=== PATIENT | female | born 1945 | race Caucasian/White ===

== ENCOUNTER 2020-12-29 13:16 | Outpatient (REF) | payer OTHER, SELFPAY ==
[2020-12-29 16:33] LABS: MANUAL DIFF FLAG NO
[2020-12-29 16:39] LABS: Appearance Urine HAZY; Color Urine YELLOW; Glucose Urine UA NEG (NEG); Leukocyte Esterase Urine TRACE (NEG); Nitrite Urine NEG (NEG); PH 6.5 (5.0-8.0); Urine Blood NEG (NEG); Urine Ketones NEG (NEG); Urine Protein NEG (NEG-TRACE)
[2020-12-29 16:45] LABS: Basophils Percent Auto 0.4 % (0-2); Eosinophils Absolute Auto 0.4 X10*3/uL (0.0-0.4); Eosinophils Percent Auto 4.4 % (0-4); Hematocrit 42.2 % (37-47); Hemoglobin 14.9 g/dl (12.0-16.0); Imm Gran Abs Auto 0.03 X10*3/uL (0.00-0.03); Imm Gran Pct Auto 0.4 % (0.0-0.4); Lymphocytes Percent Auto 23.4 % (20-40); Mean Corpuscular HGB Conc 35.3 g/dl (31.0-35.0); Mean Corpuscular Hemoglobin 32.2 pg (27.0-33.0); Mean Corpuscular Volume 91.1 fL (80-98); Mean Platelet Volume 11.1 fL (9.4-12.3); Monocytes Absolute Auto 0.7 X10*3/uL (0.1-1.2); Monocytes Percent Auto 8.6 % (2-11); Neutrophils Absolute Auto 5.2 X10*3/uL (2.0-8.3); Neutrophils Percent Auto 62.8 % (45-73); Platelet Count 259 X10*3/uL (160-400); Red Blood Count 4.63 X10*6/uL (4.20-5.50); Red Cell Distribution Width 12.8 % (11.0-16.0); White Blood Count 8.3 X10*3/uL (4.8-10.8)
[2020-12-29 16:53] LABS: Bacteria Urine 1+ /LPF; Calcium Oxalate Crystals Urine 1+ /LPF; RBC Urine 0 /HPF (0); Squamous Epithelial Cell Urine 1+ /LPF; WBC Urine 0-2 /HPF (0-4)
[2020-12-29 17:29] LABS: Thyroid Stimulating Hormone 1.65 uIU/mL (0.32-4.0); Vitamin D 25-OH Total 31.2 ng/mL (>30)
[2020-12-29 17:38] LABS: Alanine Aminotransferase 32 U/L (0-31); Albumin Level 4.3 g/dL (3.5-5.0); Alkaline Phosphatase 61 U/L (39-117); Anion Gap 14 (12-20); Aspartate Amino Transferase 26 U/L (5-31); Bilirubin Total 1.7 mg/dL (0.0-1.0); Blood Urea Nitrogen 19 mg/dL (9-16); Calcium 10.9 mg/dL (8.4-10.2); Carbon Dioxide 24 mmol/L (22-29); Chloride 104 mmol/L (96-108); Estimated Glomerular Filt Rate > 60; Glucose Random 88 mg/dL (60-115); Sodium 139 mmol/L (135-145); Total Protein 7.1 g/dL (6.5-8.0)
== END 2020-12-29 13:17 | disposition home or self-care (01) ==
LOC: HO.HMGCLDS 13:16
PROVIDERS: PCP Internal Medicine; Visit Provider Internal Medicine
DX: I10 Essential (primary) hypertension (principal); F41.9 Anxiety disorder, unspecified; E55.9 Vitamin D deficiency, unspecified
CPT/HCPCS: 36415; 80053; 81001; 82306; 84443; 85025

== ENCOUNTER 2021-02-09 10:29 | Outpatient (REF) | payer OTHER, SELFPAY ==
[2021-02-09 12:16] LABS: Alanine Aminotransferase 23 U/L (0-31); Albumin Level 4.4 g/dL (3.5-5.0); Alkaline Phosphatase 66 U/L (39-117); Anion Gap 16 (12-20); Aspartate Amino Transferase 22 U/L (5-31); Bilirubin Total 1.5 mg/dL (0.0-1.0); Blood Urea Nitrogen 35 mg/dL (9-16); Calcium 11.2 mg/dL (8.4-10.2); Carbon Dioxide 26 mmol/L (22-29); Chloride 100 mmol/L (96-108); Estimated Glomerular Filt Rate 30; Glucose Random 112 mg/dL (60-115); Sodium 138 mmol/L (135-145); Total Protein 7.5 g/dL (6.5-8.0)
== END 2021-02-09 10:30 | disposition home or self-care (01) ==
LOC: HO.HMGCLDS 10:29
PROVIDERS: PCP Internal Medicine; Visit Provider Internal Medicine
DX: I10 Essential (primary) hypertension (principal)
CPT/HCPCS: 36415; 80053

== ENCOUNTER 2021-03-09 15:09 | Outpatient (REF) | payer OTHER, SELFPAY ==
[2021-03-09 16:52] LABS: MANUAL DIFF FLAG NO
[2021-03-09 17:12] LABS: Basophils Percent Auto 0.4 % (0-2); Eosinophils Absolute Auto 0.3 X10*3/uL (0.0-0.4); Eosinophils Percent Auto 2.7 % (0-4); Hemoglobin 14.7 g/dl (12.0-16.0); Imm Gran Abs Auto 0.03 X10*3/uL (0.00-0.03); Imm Gran Pct Auto 0.3 % (0.0-0.4); Lymphocytes Absolute Auto 1.7 X10*3/uL (1.2-4.9); Lymphocytes Percent Auto 15.9 % (20-40); Mean Corpuscular Hemoglobin 32.2 pg (27.0-33.0); Mean Corpuscular Volume 92.1 fL (80.0-98.0); Mean Platelet Volume 10.7 fL (9.4-12.3); Monocytes Absolute Auto 0.8 X10*3/uL (0.1-1.2); Neutrophils Absolute Auto 7.6 x10*3/uL (2.0-8.3); Neutrophils Percent Auto 72.7 % (45-73); Platelet Count 278 X10*3/uL (160-400); Red Blood Count 4.56 X10*6/uL (4.20-5.50); Red Cell Distribution Width 13.2 % (11.0-16.0); White Blood Count 10.4 X10*3/uL (4.8-10.8)
[2021-03-09 17:16] LABS: Alanine Aminotransferase 27 U/L (0-31); Albumin Level 4.4 g/dL (3.5-5.0); Alkaline Phosphatase 65 U/L (39-117); Anion Gap 16 (12-20); Aspartate Amino Transferase 22 U/L (5-31); Bilirubin Total 1.3 mg/dL (0.0-1.0); Blood Urea Nitrogen 19 mg/dL (9-16); Calcium 10.1 mg/dL (8.4-10.2); Carbon Dioxide 25 mmol/L (22-29); Chloride 105 mmol/L (96-108); Estimated Glomerular Filt Rate 54; Glucose Random 91 mg/dL (60-115); Potassium 4.1 mmol/L (3.3-5.1); Sodium 142 mmol/L (135-145); Total Protein 7.5 g/dL (6.5-8.0)
[2021-03-12 04:46] LABS: Calcium (PTHI) 10.4 mg/dL (8.6-10.4); PTHI 17 pg/mL (14-64)
== END 2021-03-09 15:10 | disposition home or self-care (01) ==
LOC: HO.HMGCLDS 15:09
PROVIDERS: Visit Provider Internal Medicine
DX: I10 Essential (primary) hypertension (principal)
CPT/HCPCS: 36415; 80053; 83970; 85025

== ENCOUNTER 2022-08-16 11:27 | Outpatient (REF) | payer OTHER, SELFPAY ==
[2022-08-16 14:01] LABS: MANUAL DIFF FLAG NO
[2022-08-16 14:25] LABS: Basophils Absolute Auto 0.1 X10*3/uL (0.0-0.2); Basophils Percent Auto 0.6 % (0-2); Eosinophils Absolute Auto 0.6 X10*3/uL (0.0-0.4); Hematocrit 44.5 % (37.0-47.0); Hemoglobin 14.8 g/dl (12.0-16.0); Imm Gran Abs Auto 0.04 X10*3/uL (0.00-0.03); Imm Gran Pct Auto 0.5 % (0.0-0.4); Lymphocytes Absolute Auto 1.8 X10*3/uL (1.2-4.9); Lymphocytes Percent Auto 22.8 % (20-40); Mean Corpuscular HGB Conc 33.3 g/dl (31.0-35.0); Mean Corpuscular Hemoglobin 30.5 pg (27.0-33.0); Mean Corpuscular Volume 91.6 fL (80.0-98.0); Mean Platelet Volume 10.5 fL (9.4-12.3); Monocytes Absolute Auto 0.6 X10*3/uL (0.1-1.2); Neutrophils Absolute Auto 4.8 x10*3/uL (2.0-8.3); Neutrophils Percent Auto 60.1 % (45-73); Platelet Count 274 X10*3/uL (160-400); Red Blood Count 4.86 X10*6/uL (4.20-5.50); Red Cell Distribution Width 13.6 % (11.0-16.0)
[2022-08-16 18:57] LABS: Alanine Aminotransferase 22 U/L (0-31); Albumin Level 4.1 g/dL (3.5-5.0); Alkaline Phosphatase 69 U/L (39-117); Anion Gap 14 (12-20); Aspartate Amino Transferase 21 U/L (5-31); Bilirubin Total 1.8 mg/dL (0.0-1.0); Blood Urea Nitrogen 17 mg/dL (9-16); Calcium 10.5 mg/dL (8.4-10.2); Carbon Dioxide 24 mmol/L (22-29); Chloride 109 mmol/L (96-108); Cholesterol 242 mg/dL; Estimated Glomerular Filt Rate > 60; Glucose Fasting 93 mg/dL (60-99); HDL Cholesterol 60 mg/dL; LDL Cholesterol Calculated 151 mg/dl; Potassium 4.9 mmol/L (3.3-5.1); Sodium 142 mmol/L (135-145); Total Protein 6.7 g/dL (6.5-8.0); Triglycerides 156 mg/dL
[2022-08-16 19:12] LABS: Thyroid Stimulating Hormone 2.51 uIU/mL (0.32-4.0); Vitamin D 25-OH Total 29.8 ng/mL (>30)
== END 2022-08-16 11:28 | disposition home or self-care (01) ==
LOC: HO.HMGCLDS 11:27
PROVIDERS: PCP Internal Medicine; Visit Provider Internal Medicine
DX: R26.9 Unspecified abnormalities of gait and mobility (principal); I10 Essential (primary) hypertension; E78.00 Pure hypercholesterolemia, unspecified; E55.9 Vitamin D deficiency, unspecified
CPT/HCPCS: 36415; 80053; 80061; 82306; 84443; 85025

== ENCOUNTER → 2022-10-03 14:58 | Outpatient (BNVA) | payer OTHER, SELFPAY | PROVIDERS: PCP Internal Medicine; Visit Provider Orthopaedic Surgery | DX: M65.332 Trigger finger, left middle finger (principal); M25.642 Stiffness of left hand, not elsewhere classified | CPT/HCPCS: 20550; J1100 ==

== ENCOUNTER 2023-02-15 14:35 | Outpatient (REF) | payer OTHER, SELFPAY ==
[2023-02-15 16:22] LABS: Alanine Aminotransferase 20 U/L (0-31); Alkaline Phosphatase 60 U/L (39-117); Anion Gap 12 (12-20); Aspartate Amino Transferase 18 U/L (5-31); Bilirubin Total 1.2 mg/dL (0.0-1.0); Blood Urea Nitrogen 26 mg/dL (9-16); Calcium 10.9 mg/dL (8.4-10.2); Carbon Dioxide 24 mmol/L (22-29); Chloride 110 mmol/L (96-108); Cholesterol 205 mg/dL (<200); Estimated Glomerular Filt Rate > 60; Glucose Fasting 99 mg/dL (60-99); HDL Cholesterol 54 mg/dL (>40); LDL Cholesterol Calculated 125 mg/dL (<100); Potassium 3.7 mmol/L (3.3-5.1); Sodium 142 mmol/L (135-145); Total Protein 6.8 g/dL (6.5-8.0); Triglycerides 133 mg/dL (<150)
[2023-02-16 17:49] LABS: PTHI <6 pg/mL (16-77)
== END 2023-02-15 14:36 | disposition home or self-care (01) ==
LOC: HO.HMGCLDS 14:35
PROVIDERS: PCP Internal Medicine; Visit Provider Internal Medicine
DX: I10 Essential (primary) hypertension (principal); E78.00 Pure hypercholesterolemia, unspecified; E55.9 Vitamin D deficiency, unspecified; M65.332 Trigger finger, left middle finger
CPT/HCPCS: 36415; 80053; 80061; 83970

== ENCOUNTER 2023-02-27 11:11 | Outpatient (REF) | payer OTHER, SELFPAY ==
--- NOTE | ~2023-02-27 | XR_ITS ---
EXAMINATION: XR CHEST CLINICAL INFORMATION: Essential hypertension COMPARISON: 03/20/2015 and 10/16/2011 TECHNIQUE: 2 views of the chest were obtained. FINDINGS: There are low volumes, but the lungs are clear. The right hilum is newly enlarged. The aorta is uncoiled. The cardiac silhouette is normal in size. XR/XR chest 2V IMPRESSION: 1. Enlarged right hilum could reflect an enlarged right pulmonary artery, suggesting pulmonary artery hypertension. (Alternatively, this could reflect hilar enlargement). Contrast-enhanced thoracic CT is suggested as clinically warranted.
[2023-02-27 13:37] LABS: MANUAL DIFF FLAG NO
[2023-02-27 14:09] LABS: Basophils Percent Auto 0.3 % (0-2); Eosinophils Absolute Auto 0.4 X10*3/uL (0.0-0.4); Hemoglobin 15.2 g/dl (12.0-16.0); Imm Gran Abs Auto 0.04 X10*3/uL (0.00-0.03); Imm Gran Pct Auto 0.4 % (0.0-0.4); Lymphocytes Absolute Auto 1.4 X10*3/uL (1.2-4.9); Lymphocytes Percent Auto 14.1 % (20-40); Mean Corpuscular HGB Conc 34.5 g/dl (31.0-35.0); Mean Corpuscular Hemoglobin 30.6 pg (27.0-33.0); Mean Corpuscular Volume 88.5 fL (80.0-98.0); Mean Platelet Volume 10.7 fL (9.4-12.3); Monocytes Absolute Auto 0.7 X10*3/uL (0.1-1.2); Neutrophils Absolute Auto 7.6 x10*3/uL (2.0-8.3); Neutrophils Percent Auto 74.2 % (45-73); Platelet Count 346 X10*3/uL (160-400); Red Blood Count 4.97 X10*6/uL (4.20-5.50); Red Cell Distribution Width 12.7 % (11.0-16.0); White Blood Count 10.2 X10*3/uL (4.8-10.8)
[2023-02-27 14:26] LABS: Alanine Aminotransferase 18 U/L (0-31); Albumin Level 4.2 g/dL (3.5-5.0); Alkaline Phosphatase 67 U/L (39-117); Anion Gap 14 (12-20); Aspartate Amino Transferase 18 U/L (5-31); Bilirubin Total 1.1 mg/dL (0.0-1.0); Blood Urea Nitrogen 15 mg/dL (9-16); Calcium 11.3 mg/dL (8.4-10.2); Carbon Dioxide 22 mmol/L (22-29); Chloride 108 mmol/L (96-108); Estimated Glomerular Filt Rate > 60; Glucose Random 129 mg/dL (60-115); Potassium 3.2 mmol/L (3.3-5.1); Sodium 141 mmol/L (135-145); Total Protein 7.3 g/dL (6.5-8.0)
[2023-02-27 14:28] LABS: Thyroid Stimulating Hormone 2.13 uIU/mL (0.32-4.0); Vitamin D 25-OH Total 32.6 ng/mL (>30)
[2023-02-28 16:28] LABS: PTHI <6 pg/mL (16-77)
[2023-03-01 16:43] LABS: Calcium, Ionized 5.9 mg/dL (4.7-5.5)
[2023-03-01 21:52] LABS: Prot Elec - Alpha1 0.3 g/dL (0.2-0.3); Prot Elec - Alpha2 0.7 g/dL (0.5-0.9); Prot Elec - Beta 1 0.5 g/dL (0.4-0.6); Prot Elec - Beta 2 0.3 g/dL (0.2-0.5); Prot Elec - Gamma 0.9 g/dL (0.8-1.7); Prot Elec - Total Protein 6.7 g/dL (6.1-8.1)
[2023-03-03 10:30] LABS: IgA 208 mg/dL (70-320); IgG 1022 mg/dL (600-1540); IgM 81 mg/dL (50-300)
[2023-03-04 15:23] LABS: Vitamin D 25-OH, D2 <4 ng/mL; Vitamin D 25-OH, D3 23 ng/mL; Vitamin D 25-OH, Total 23 ng/mL (30-100)
[2023-03-05 09:59] LABS: VITAMIN D (1,25 OH) D3 <8 pg/mL; Vit D (1,25-Dihydroxy) Total <8 pg/mL (18-72); Vitamin D (1,25 OH) D2 <8 pg/mL
== END 2023-02-27 11:12 | disposition home or self-care (01) ==
LOC: HO.HMGCLDS 11:11
PROVIDERS: PCP Internal Medicine; Visit Provider Internal Medicine
DX: E83.52 Hypercalcemia (principal); E55.9 Vitamin D deficiency, unspecified; I10 Essential (primary) hypertension
CPT/HCPCS: 36415; 71046; 80053; 82306; 82330; 82652; 82784; 83970; 84165; 84443; 85025; 86334

== ENCOUNTER 2023-04-26 11:03 | Outpatient (REF) | payer OTHER, SELFPAY ==
[2023-04-26 13:06] LABS: Alanine Aminotransferase 23 U/L (0-31); Albumin Level 4.2 g/dL (3.5-5.0); Alkaline Phosphatase 73 U/L (39-117); Anion Gap 14 (12-20); Aspartate Amino Transferase 20 U/L (5-31); Bilirubin Total 0.8 mg/dL (0.0-1.0); Blood Urea Nitrogen 19 mg/dL (9-16); Calcium 11.6 mg/dL (8.4-10.2); Carbon Dioxide 25 mmol/L (22-29); Chloride 106 mmol/L (96-108); Estimated Glomerular Filt Rate > 60; Glucose Random 106 mg/dL (60-115); Potassium 4.6 mmol/L (3.3-5.1); Sodium 140 mmol/L (135-145); Total Protein 7.2 g/dL (6.5-8.0)
[2023-04-26 13:12] LABS: Parathyroid Hormone Intact 8.1 pg/mL (8.7-77.1)
[2023-05-01 13:34] LABS: Angiotensin Converting Enzyme 34 U/L (9-67)
[2023-05-09 17:09] LABS: Parathyroid Hormone Related Pr 11 pg/mL (11-20)
== END 2023-04-26 11:04 | disposition home or self-care (01) ==
LOC: HO.HMGCLDS 11:03
PROVIDERS: PCP Internal Medicine; Visit Provider Internal Medicine
DX: E83.52 Hypercalcemia (principal)
CPT/HCPCS: 36415; 80053; 82164; 83519; 83970

== ENCOUNTER 2023-06-22 11:49 | Outpatient (REF) | payer OTHER, SELFPAY ==
--- NOTE | ~2023-06-22 | XR_ITS ---
EXAMINATION: XR CHEST CLINICAL INFORMATION: Essential hypertension COMPARISON: Available TECHNIQUE: 2 views of the chest were obtained. FINDINGS: Heart and mediastinum within normal limits. Aorta is tortuous. Prominent right hilum is stable, likely vascular. No vascular congestion, consolidations or effusions. Increased AP diameter to the chest with hyperinflation mild biapical pleural thickening. Minimal kyphosis. Demineralization and mild degenerative changes. XR/XR chest 2V IMPRESSION: No acute cardiopulmonary disease.
[2023-06-22 14:41] LABS: Alanine Aminotransferase 22 U/L (0-31); Alkaline Phosphatase 77 U/L (39-117); Anion Gap 15 (12-20); Aspartate Amino Transferase 23 U/L (5-31); Bilirubin Total 0.8 mg/dL (0.0-1.0); Blood Urea Nitrogen 18 mg/dL (9-16); Calcium 10.4 mg/dL (8.4-10.2); Carbon Dioxide 22 mmol/L (22-29); Chloride 106 mmol/L (96-108); Estimated Glomerular Filt Rate 52; Glucose Random 107 mg/dL (60-115); Potassium 4.3 mmol/L (3.3-5.1); Sodium 139 mmol/L (135-145); Total Protein 7.1 g/dL (6.5-8.0)
== END 2023-06-22 11:50 | disposition home or self-care (01) ==
LOC: HO.HMGCX 11:49
PROVIDERS: PCP Internal Medicine; Visit Provider Internal Medicine
DX: E83.52 Hypercalcemia (principal); I10 Essential (primary) hypertension
CPT/HCPCS: 36415; 71046; 80053; 83970

== ENCOUNTER 2024-01-29 07:16 | Outpatient (REF) | payer OTHER, SELFPAY ==
[2024-01-29 10:40] LABS: MANUAL DIFF FLAG NO
[2024-01-29 10:43] LABS: Basophils Absolute Auto 0.1 X10*3/uL (0.0-0.2); Basophils Percent Auto 0.6 % (0-2); Eosinophils Absolute Auto 0.8 X10*3/uL (0.0-0.4); Eosinophils Percent Auto 9.3 % (0-4); Hematocrit 45.6 % (37.0-47.0); Hemoglobin 15.5 g/dl (12.0-16.0); Imm Gran Abs Auto 0.03 X10*3/uL (0.00-0.03); Imm Gran Pct Auto 0.4 % (0.0-0.4); Lymphocytes Absolute Auto 1.9 X10*3/uL (1.2-4.9); Lymphocytes Percent Auto 22.4 % (20-40); Mean Corpuscular Hemoglobin 30.8 pg (27.0-33.0); Mean Corpuscular Volume 90.7 fL (80.0-98.0); Mean Platelet Volume 10.3 fL (9.4-12.3); Monocytes Absolute Auto 0.6 X10*3/uL (0.1-1.2); Monocytes Percent Auto 6.6 % (2-11); Neutrophils Absolute Auto 5.1 x10*3/uL (2.0-8.3); Neutrophils Percent Auto 60.7 % (45-73); Platelet Count 334 X10*3/uL (160-400); Red Blood Count 5.03 X10*6/uL (4.20-5.50); White Blood Count 8.3 X10*3/uL (4.8-10.8)
[2024-01-29 11:22] LABS: Alanine Aminotransferase 20 U/L (0-31); Albumin Level 4.2 g/dL (3.5-5.0); Alkaline Phosphatase 86 U/L (39-117); Anion Gap 14 (12-20); Aspartate Amino Transferase 19 U/L (5-31); Bilirubin Total 0.8 mg/dL (0.0-1.0); Blood Urea Nitrogen 23 mg/dL (9-16); Calcium 10.4 mg/dL (8.4-10.2); Carbon Dioxide 24 mmol/L (22-29); Chloride 108 mmol/L (96-108); Cholesterol 232 mg/dL (<200); Estimated Glomerular Filt Rate > 60; Glucose Fasting 97 mg/dL (60-99); HDL Cholesterol 54 mg/dL (>40); LDL Cholesterol Calculated 139 mg/dL (<100); Parathyroid Hormone Intact 25.3 pg/mL (8.7-77.1); Sodium 142 mmol/L (135-145); Total Protein 7.1 g/dL (6.5-8.0); Triglycerides 198 mg/dL (<150)
[2024-01-29 11:37] LABS: Thyroid Stimulating Hormone 2.44 uIU/mL (0.32-4.0); Vitamin D 25-OH Total 37.4 ng/mL (>30)
[2024-01-30 15:19] LABS: Calcium, Ionized 5.4 mg/dL (4.7-5.5)
== END 2024-01-29 07:17 | disposition home or self-care (01) ==
LOC: HO.LHD 07:16
PROVIDERS: Visit Provider Internal Medicine
DX: E83.52 Hypercalcemia (principal); I10 Essential (primary) hypertension; K21.9 Gastro-esophageal reflux disease without esophagitis; E55.9 Vitamin D deficiency, unspecified
CPT/HCPCS: 36415; 80053; 80061; 82306; 82330; 83970; 84443; 85025

== ENCOUNTER 2024-06-20 13:53 | Outpatient (AMB) | payer OTHER, SELFPAY ==
--- NOTE | 2024-06-20 13:54 | A.OFFPC_ITS ---
Intake Visit Reasons: evaluation for [facility] services Corrective Therapy Aide Teacher Required: No Solaris Administrator: Not Required per policy Accompanied by: Self / Same As Patient Allergies Sulfa (Sulfonamide Antibiotics) Allergy (Intermediate, Verified 06/20/24 14:21) Unknown Medication List - Last Reconciled 06/20/24 by Juanita Pastor PA-C atorvastatin 10 mg PO BEDTIME omeprazole 20 mg PO DAILY spironolactone 50 mg PO DAILY 90 days Tobacco use date assessed: 06/20/24 Fall risk assessment: No Falls in past year Last assessed Fall Risk: 06/20/24 Dental Screening Dental Screen Date: 06/20/24 Did you have a dental visit in the last 12 months?: Yes Did you have a dental problem in the last 6 months where you did not have access to dental care?: No Was dental information given to patient?: Patient has dentist [facility] Medical History (Updated 06/20/24 @ 14:27 by Juanita Pastor PA-C) Hyperlipidemia Mild hypercholesterolemia Hypertriglyceridemia Vitamin D deficiency GERD (gastroesophageal reflux disease) Essential hypertension Wheelchair dependence Bedbound Gait abnormality High blood pressure Social History Housing: House Alcohol intake: current Alcohol intake frequency: a few times a month Patient Tobacco Use Status: Never used Tobacco e-Cigarette/Vaping Use: Never Used Second Hand Smoke Exposure: No service: No Current occupational status: retired Current occupation: left hand Cognitive needs: Yes (cane, wheelchair, walker) Hearing needs: No Vision needs: Yes (Glasses) Questionnaire PHQ-9 Over the last 2 weeks, how often have you been bothered by any of the following problems? 1. Little interest or pleasure in doing things: not at all 2. Feeling down, depressed, or hopeless: not at all 3. Trouble falling or staying asleep, or sleeping too much: not at all 4. Feeling tired or having little energy: not at all 5. Poor appetite or overeating: not at all 6. Feeling bad about yourself - or that you are a failure or have let yourself or your family down: not at all 7. Trouble concentrating on things, such as reading the newspaper or watching television: not at all 8. Moving or speaking so slowly that other people could have noticed. Or the opposite - being so fidgety or restless that you have been moving around a lot more than usual: not at all 9. Thoughts that you would be better off or of hurting yourself in some way: not at all Total score: 0 Depression Screening Interpretation: Negative Depression Screening Done: Yes 95832 - PHQ-9 Billing: Yes Source: Developed by Drs. Gaurav Long, Jovita Louis, Michael Zheng and colleagues, with an educational ishmael from [employer]. Thrive Questionnaire Date Thrive assessed: 06/20/24 I am a: Patient What is your living situation today?: I have a steady place to live Within the past 12 months, did the food you bought not last and you didn't have the money to get more?: Never true Within the past 12 months, did you worry whether your food would run out before you got money to buy more?: Never true Do you have trouble paying for medicines?: No Do you have trouble getting transportation to medical appointments?: No Do you have trouble paying your heating and electricity bill?: No Do you have trouble taking care of your child, family member or friend?: No Do you have trouble with day-to-day activities such as bathing, preparing meals, shopping, managing finances, etc.?: No Are you currently unemployed and looking for a job?: No Are you interested in more education?: No Please select the resources that you would like help with: None Currently or been in a relationship where the following occur: No concerns reported THRIVE Score: 0 AUDIT C Alcohol Use Questionnaire (AUDIT-C) 1. How often do you have a drink containing alcohol?: Monthly or less 2. How many drinks containing alcohol do you have on a typical day when you are drinking?: 1 or 2 Total Score: 1 Score Reviewed/Action Taken: Yes (score reviewed ) LAYO-7 AMB Questionnaire LAYO-7 Date LAYO - 7 assessed: 06/20/24 Feeling nervous, anxious, or on edge: 0 = Not at all Not being able to stop or control worryin = Not at all Worrying too much about different things: 0 = Not at all Trouble relaxin = Not at all Being so restless that it is hard to sit still: 0 = Not at all Becoming easily annoyed or irritable: 0 = Not at all Feeling afraid as if something awful might happen: 0 = Not at all Total LAYO-7 score (0-4 normal; 5-9 mild; 10-14 moderate; 15-21 severe): 0 Source: Developed by Drs. Gaurav Long, Jovita Louis, Michael Zheng and colleagues, with an educational ishmael from [employer]. LAYO-7 Assessment Billing LAYO-7 Assessment Tool: LAYO-7 Assessment 70529 Physical exam (Primary Care) Tobacco/Smoking Status: Tobacco use Status Tobacco use date assessed 06/20/24 06/20/24 14:00 Patient Tobacco Use Status Never used Tobacco 06/20/24 14:00 e-Cigarette/Vaping Use Never Used 06/20/24 14:00 PHQ-9: PHQ-9 Score PHQ-9: Total score 0 06/20/24 14:00 Depression Screening Interpretation: Negative Thrive Assessment: Date of Thrive Assessment Date Thrive assessed 06/20/24 06/20/24 14:00 Currently or been in a relationship where the following occur: No concerns reported Telehealth Telehealth Telehealth Platform: Telephone Location of provider rendering services: practice address Location of patient: address on file Patient Identification confirmed using: Name, : Yes Telehealth method: voice only Patient verbally consented to treatment: Yes Patient verbally consented to billing insurance company: Yes Patient informed of any privacy concerns related to visit: Yes Minutes spent on Phone/Video with Pt.: 15 Coding Level of Care Code Tele New Pt Level 4 (84466) Complex EM visit Add On G2211 Diagnoses Wheelchair dependence Z99.3 Bedbound Z74.01 Gait abnormality R26.9 GERD (gastroesophageal reflux disease) K21.9 Essential hypertension I10 Vitamin D deficiency E55.9 Hypertriglyceridemia E78.1 Mild hypercholesterolemia E78.00 Hyperlipidemia E78.5 Additional Codes PHQ-9 - 87559 - PHQ-9 Billing: Yes ([id number]) LAYO-7 Assessment Billing - LAYO-7 Assessment Tool: LAYO-7 Assessment 21915 ([id number]) Assessment & Plan Assessment & Plan (1) Wheelchair dependence: Code(s): Z99.3 - Dependence on wheelchair Category: Medical Plan: Stephie's functional capacity and ability to ambulate continue to decline. She has weakness, osteoarthritis, gait abnormality. She is homebound and essentially bedbound. She cannot navigate her home without assistance. For her ongoing safety at home, she needs a walker and a wheelchair. (2) Bedbound: Code(s): Z74.01 - Bed confinement status Category: Medical Plan: Stephie's functional capacity and ability to ambulate continue to decline. She has weakness, osteoarthritis, gait abnormality. She is homebound and essentially bedbound. She cannot navigate her home without assistance. For her ongoing safety at home, she needs a walker and a wheelchair. (3) Gait abnormality: Code(s): R26.9 - Unspecified abnormalities of gait and mobility Category: Medical Plan: Stephie's functional capacity and ability to ambulate continue to decline. She has weakness, osteoarthritis, gait abnormality. She is homebound and essentially bedbound. She cannot navigate her home without assistance. For her ongoing safety at home, she needs a walker and a wheelchair. (4) GERD (gastroesophageal reflux disease): Code(s): K21.9 - Gastro-esophageal reflux disease without esophagitis Category: Medical Plan: Patient currently on omeprazole 20 mg daily. Condition is chronic and stable continue to monitor. (5) Essential hypertension: Code(s): I10 - Essential (primary) hypertension Category: Medical Plan: Patient's blood pressure is controlled at this time without any medications. Condition is chronic and stable continue to monitor. (6) Vitamin D deficiency: Code(s): E55.9 - Vitamin D deficiency, unspecified Category: Medical Plan: Vitamin-D has improved when reviewing labs of February of 2024. Condition is chronic and stable continue to monitor. (7) Hypertriglyceridemia: Code(s): E78.1 - Pure hyperglyceridemia Category: Medical Plan: Patient will be started on atorvastatin 10 mg at bedtime. Condition is chronic and stable continue to monitor. (8) Mild hypercholesterolemia: Code(s): E78.00 - Pure hypercholesterolemia, unspecified Category: Medical Plan: Patient will be started on atorvastatin 10 mg at bedtime. Condition is chronic and stable continue to monitor. (9) Hyperlipidemia: Code(s): E78.5 - Hyperlipidemia, unspecified Category: Medical Plan: Patient will be started on atorvastatin 10 mg at bedtime. Condition is chronic and stable continue to monitor. Plan Plan Patient was informed and verbally consented to the use of an ambient scribe for clinic note documentation during this visit. 1. Vitamin D Deficiency No further treatment is needed, pending routine periodic checks as levels have normalized. 2. Acid Reflux Omeprazole continues for acid reflux, with lifestyle modification encouraged for symptom management. 3. Osteoarthritis The patient will continue using the manual wheelchair for mobility due to osteoarthritis. Reassessment of her mobility needs is ongoing, accounting for any symptom changes. 4. Allergic Rhinitis Management with Zyrtec continues, with an emphasis on allergen avoidance. 5. Chronic Low Back Pain Analgesia is managed with [id number] NSAIDs as needed. Maintained physical therapies at home are encouraged for pain relief and functionality. 6. Hyperlipidemia Initiation of simvastatin, with monitoring of lipid levels recommended to manage elevated cholesterol. 7. Essential Hypertension Blood pressure continues to be managed with spironolactone without immediate adjustment. Follow-up monitoring is advised. 8. Weakness Continued use of supportive devices such as a walker and wheelchair is recommended. Encouragement to maintain physical strength through feasible activities remains critical. Orders: Orders Comprehensive [place]. Panel Fast Today Z00.00 - Encounter for general adult medical examination without abnormal findings C Reactive Protein Today Z00.00 - Encounter for general adult medical examination without abnormal findings Lipid Panel Today Z00.00 - Encounter for general adult medical examination without abnormal findings Liver Panel Today Z00.00 - Encounter for general adult medical examination without abnormal findings Magnesium Today Z00.00 - Encounter for general adult medical examination without abnormal findings TSH reflex Free T4 Today Z00.00 - Encounter for general adult medical examination without abnormal findings Complete Blood Count Auto Diff Today Z00.00 - Encounter for general adult medical examination without abnormal findings Hemoglobin A1c Today Z00.00 - Encounter for general adult medical examination without abnormal findings Vitamin D 25-OH Total Today Z00.00 - Encounter for general adult medical examination without abnormal findings Vitamin B12 and Folate Today Z00.00 - Encounter for general adult medical examination without abnormal findings Vitamin B1 Today Z00.00 - Encounter for general adult medical examination without abnormal findings Medications: New atorvastatin 10 mg PO BEDTIME 90 tabs 1RF Refilled omeprazole Take 1 capsule by mouth every day 30 minutes before morning meal 20 mg PO DAILY 90 caps 1RF Patient Instructions: Patient Instructions - Continue using current wheelchair and walker as needed for mobility assistance. - Maintain regular physical activity within comfortable limits. - Continue current medication regimen: omeprazole, spironolactone, and Zyrtec. - Begin taking simvastatin as prescribed before bedtime each night. - Monitor symptoms and report any side effects or new issues. - Follow a lipid-lowering diet, maintain hydration, and avoid known allergens. - Attend follow-up visits as scheduled and complete routine blood work when convenient. Scribe Plan - Not visible on output: History of Present Illness The patient is a 78-year-old female presenting for reevaluation of her assistive mobility devices necessitated by osteoarthritis and associated weakness. Primarily homebound, she navigates indoors with a walker and uses a wheelchair for external mobility due to chronic low back pain, severely affecting her lower extremities. Her current manual wheelchair, used for external activities, needs reevaluation to ensure it adequately supports her condition and lifestyle needs. Despite these chronic issues, she denied recent falls within the past year. Review of Systems - Constitutional: Reports no recent falls - Musculoskeletal: Reports chronic weakness, chronic low back pain - Gastrointestinal: Reports acid reflux - Cardiovascular: Denies further specific symptoms not discussed in History - Allergic/Immunologic: Reports allergies responsive to antihistamines Plan Patient was informed and verbally consented to the use of an ambient scribe for clinic note documentation during this visit. 1. Vitamin D Deficiency No further treatment is needed, pending routine periodic checks as levels have normalized. 2. Acid Reflux Omeprazole continues for acid reflux, with lifestyle modification encouraged for symptom management. 3. Osteoarthritis The patient will continue using the manual wheelchair for mobility due to osteoarthritis. Reassessment of her mobility needs is ongoing, accounting for any symptom changes. 4. Allergic Rhinitis Management with Zyrtec continues, with an emphasis on allergen avoidance. 5. Chronic Low Back Pain Analgesia is managed with [id number] NSAIDs as needed. Maintained physical therapies at home are encouraged for pain relief and functionality. 6. Hyperlipidemia Initiation of simvastatin, with monitoring of lipid levels recommended to manage elevated cholesterol. 7. Essential Hypertension Blood pressure continues to be managed with spironolactone without immediate adjustment. Follow-up monitoring is advised. 8. Weakness Continued use of supportive devices such as a walker and wheelchair is recommended. Encouragement to maintain physical strength through feasible activi ties remains critical. Discussion Notes During the visit, the patient and I discussed her current mobility aids, specifically her wheelchair, utilized due to severe osteoarthritis and associated weakness. We reviewed her condition continuum; currently stable with significant symptom control provided by her supports. We revisited her medication regimen?including omeprazole for acid reflux and spironolactone for hypertension?and deemed them effective, refilling the necessary prescriptions. The patient's elevated cholesterol necessitated the initiation of simvastatin, balanced with the suggestion of subsequent lipid profile monitoring. I emphasized the potential adverse effects of simvastatin, such as muscle aches, advising her to report any side effects. No acute necessity for a [employer] or VNA was noted, given the home assistance from family members. We discussed desired refills and how her family aids currently in her care. Arrangements were made to input denominational prescriptions to [facility], and encouraged her to seek further blood work when feasible. Patient Instructions - Continue using current wheelchair and walker as needed for mobility assistance. - Maintain regular physical activity within comfortable limits. - Continue current medication regimen: omeprazole, spironolactone, and Zyrtec. - Begin taking simvastatin as prescribed before bedtime each night. - Monitor symptoms and report any side effects or new issues. - Follow a lipid-lowering diet, maintain hydration, and avoid known allergens. - Attend follow-up visits as scheduled and complete routine blood work when convenient.
== END 2024-06-20 14:48 | disposition home or self-care (01) ==
LOC: HO.HMCH 13:53
PROVIDERS: PCP Internal Medicine; Visit Provider Physician Assistant Medical
DX: K21.9 Gastro-esophageal reflux disease without esophagitis (principal); Z99.3 Dependence on wheelchair; Z74.01 Bed confinement status; R26.9 Unspecified abnormalities of gait and mobility; I10 Essential (primary) hypertension; E55.9 Vitamin D deficiency, unspecified; E78.1 Pure hyperglyceridemia; E78.00 Pure hypercholesterolemia, unspecified; E78.5 Hyperlipidemia, unspecified

== ENCOUNTER → 2024-06-20 13:53 | Outpatient (BNVA) | payer OTHER, SELFPAY | PROVIDERS: PCP Internal Medicine; Visit Provider Physician Assistant Medical | DX: R26.9 Unspecified abnormalities of gait and mobility (principal); K21.9 Gastro-esophageal reflux disease without esophagitis; I10 Essential (primary) hypertension; E55.9 Vitamin D deficiency, unspecified; E78.1 Pure hyperglyceridemia; E78.00 Pure hypercholesterolemia, unspecified; E78.5 Hyperlipidemia, unspecified; M19.90 Unspecified osteoarthritis, unspecified site; Z79.899 Other long term (current) drug therapy; Z99.3 Dependence on wheelchair; Z74.01 Bed confinement status | CPT/HCPCS: 96127 ==